=== PATIENT | female | born 1950 | race Caucasian/White ===

== ENCOUNTER → 2017-05-15 | Outpatient (CLI) | payer MEDICARE, OTHER | END | disposition home or self-care (01) | LOC: GMAL 12:49 | PROVIDERS: ATTEND Family Medicine | DX: D51.3 Other dietary vitamin B12 deficiency anemia (principal); R53.82 Chronic fatigue, unspecified; E55.9 Vitamin D deficiency, unspecified ==

== ENCOUNTER → 2017-08-13 | Outpatient (CLI) | payer MEDICARE, OTHER | LOC: GMAL 10:46 | PROVIDERS: ATTEND Family Medicine | DX: D51.3 Other dietary vitamin B12 deficiency anemia (principal) ==

== ENCOUNTER → 2017-08-22 | Outpatient (CLI) | payer MEDICARE, OTHER | LOC: GMAL 11:22 | PROVIDERS: ATTEND Family Medicine | DX: E34.9 Endocrine disorder, unspecified (principal) ==

== ENCOUNTER → 2017-11-25 | Outpatient (CLI) | payer MEDICARE, OTHER | LOC: SL 10:54 | PROVIDERS: ATTEND Family Medicine | DX: G47.33 Obstructive sleep apnea (adult) (pediatric) (principal) ==

== ENCOUNTER → 2018-07-31 | Outpatient (CLI) | payer MEDICARE, OTHER ==
--- NOTE | 2018-07-31 14:03 | CT ---
EXAM DESCRIPTION: Abdomen/Pelvis w/wo Contrast: Computed Tomography. CLINICAL HISTORY: ABD PAIN COMPARISON: None. TECHNIQUE: Spiral-axial scans at 5.0 mm intervals through the abdomen and pelvis before and after 75 mL Optiray 320 nonionic IV contrast. Gastrografin oral contrast. Coronal and sagittal 2.0 mm reconstructions. 2.5 x 5 mm reconstructed helical-axial scans, liver through the pubic symphysis. No adverse reactions. Total Exam DLP 1147.07 mGy - cm. This exam was performed according to our departmental CT dose-optimization program which includes automated exposure control, adjustment of the mA and/or kV according to patient size and/or use of iterative reconstruction technique; to reduce radiation dose to as low as reasonably achievable (ALARA). FINDINGS: Mesentery: In the anterior midline abdomen at the level of the L1-L2 and L3 vertebra, is an irregularly enhancing mass with circumscribed and lobulated margins as well as ill-defined margins. Fatty stranding around the inferior lateral and superior margins. Mass effect on the colon, left kidney, mesentery, small bowel, mesentery vessels. This mass measures 7.8 x 3.4 cm in the transverse plane and craniocaudal axis is 7.4 cm. Associated with the medial border of this mass is a large relatively uniform fat density mass, which is displacing left side abdominal contents through the right of midline superior and anterior. Dimensions are approximately 20.1 x 9.3 cm in the coronal plane and 10.9 cm transverse axis. Fusiform mass on the anterior lateral capsule of the fatty mass with minimal enhancement and measuring 2.5 x 1.6 cm in the axial plane and 2.3 cm in the transverse axis. This mass is abutting the lateral border of the left kidney, effacing the contrast-filled descending colon and also abutting the spleen stomach aorta and proximal sigmoid colon. Calcification possibly in the posterior capsule of the mass at the mid level. Small Bowel: Minimal contrast and fluid with displacement, predominantly of the jejunum, by the solid and fatty mass. No distention or significant air-fluid levels. No significant displacement of the terminal ileum which contains fluid and oral contrast. No obstruction. Terminal Ileum/Cecum: Unremarkable. Contrast in the appendix which is normal caliber with no fatty stranding. Colon: Normal caliber proximal with oral contrast. Effacement of the splenic flexure and proximal descending colon. Some irregularity in the mucosa. Minimal redundancy of the sigmoid colon. No evidence of obstruction. Minimally redundant sigmoid with few diverticula, no complications.. Liver, Stomach, Spleen, Adrenal Glands: Large gastric hiatal hernia. No definite volvulus. No gastric or duodenal obstruction. Distal duodenum shifted to the right of midline. Spleen and other solid organs are negative. Pancreas, Gallbladder, Ducts: Mass effect shifting to the right, by the fatty component. No fluid in the Morison's pouch. Kidneys and Ureters: Partially kidney joining at the isthmus with relatively normal positioning of the right renal component. Left renal hilum directed posteriorly with mass effect from the solid and fatty component. No perirenal fluid hydronephrosis or radiodense stones. Ureters were not not well seen with no delayed images. Pelvic Organs: Vaginal cuff contains minimal air. Mass effect on the urinary bladder but no radiodense stones. Ureters are not well seen. Lung bases and pleura: Atelectasis and pleural parenchymal scarring in the right base. No effusion. Ovaries not well seen.. Aorta: Moderate atherosclerotic calcification but no significant stenosis or aneurysm formation. Spine and Bony Pelvis: T12-L3 levoscoliosis. Spondylosis at multiple levels. No lytic or blastic lesions. Minimal spondylosis distal thoracic spine. Overall bone density is decreased. Minimal arthrosis bilateral hip joints. Abdominal Wall/Back Soft Tissues: Diastases at the umbilicus but no hernia. IMPRESSION: 1. Irregular partially necrotic and partially enhancing soft tissue mass abutting the anterior midline abdominal wall at the L1-L3 levels with greatest dimension almost 8 cm and irregular margins medially, where a 20 x 11 x 9 cm fatty mass occupies most of the right side of the abdomen displacing adjacent organs to the midline and right of midline. Question of the soft tissue component with possible invasion of the wall of the hepatic flexure or proximal ascending colon. Mass effect on the descending colon by the fatty mass. No free fluid. Differential includes liposarcoma or other type of sarcoma or fatty tumor. Metastasis unlikely. Surgical consult recommended. The solid necrotic component would be amenable to image guided tissue sampling . 2. 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 Left kidney is rotated. No hydronephrosis radiodense stones or perinephric fluid. 3. No colon obstruction. Diverticulosis distal colon without complication. No free fluid in the abdomen or pelvis. Moderate levoscoliosis. Large gastric hiatal hernia which could be secondary to mass effect. Electronically signed by: David Fermin MD 07/31/2018 2:01 PM CDT
== END ==
LOC: GMAL 10:19
PROVIDERS: ATTEND Family Medicine
DX: R19.01 Right upper quadrant abdominal swelling, mass and lump (principal); R97.0 Elevated carcinoembryonic antigen [CEA]; Q63.1 Lobulated, fused and horseshoe kidney; K57.30 Diverticulosis of large intestine without perforation or abscess without bleeding; K44.9 Diaphragmatic hernia without obstruction or gangrene; M41.86 Other forms of scoliosis, lumbar region

== ENCOUNTER 2018-12-16 05:04 | Day surgery (SDC) | payer MEDICARE, OTHER ==
[2018-12-16] MEDS ORDERED: TROP 1%/CYCLOPEN 1%/PHENYL 2% DROPS ONE (05:47)
[2018-12-16] MEDS ORDERED: PROPARACAINE 0.5% OPHTH SOL 15 ML BTTL ONE (05:47)
[2018-12-16] MEDS ORDERED: MOXIFLOXACIN HCL (OPHTH) 1 DROP DROPS ONE (05:47)
== END 2018-12-16 07:15 | disposition home or self-care (01) ==
LOC: AMB 05:04
PROVIDERS: ATTEND Ophthalmology
DX: H26.491 Other secondary cataract, right eye (principal); I10 Essential (primary) hypertension; Z79.899 Other long term (current) drug therapy

== ENCOUNTER → 2018-12-26 | Outpatient (CLI) | payer MEDICARE, OTHER ==
--- NOTE | 2018-12-26 15:12 | CT ---
EXAM DESCRIPTION: Chest w/Contrast CLINICAL HISTORY: 68 years Female, MALIGNANT NEOPLASM OF CONNECTIVE AND SOFT TISSUE COMPARISON: CT abdomen pelvis dated 07/31/2018. TECHNIQUE: Contiguous thin section axial images through the chest were obtained after the administration of intravenous contrast. Sagittal and coronal reconstructions were reviewed. FINDINGS: The visualized thyroid gland and supraclavicular region appear normal. No evidence of abnormally enlarged mediastinal, hilar or axillary lymphadenopathy. Trachea is midline and the central tracheobronchial tree is patent. Mild atelectasis is noted in the right middle lobe, lingula and bilateral lower lobes. No evidence of pleural effusions. The heart is normal in size with no pericardial effusion. The visualized aorta is nonaneurysmal with no significant atherosclerosis. The superior vena cava is normal in size and caliber.No significant coronary artery atherosclerosis. The esophagus appears normal throughout its visualized length. Limited evaluation of the upper abdomen demonstrates no gross abnormality. Dextroscoliosis of the thoracic spine with multilevel degenerative disc disease. IMPRESSION: No evidence of metastatic disease within the chest. This exam was performed according to our departmental dose-optimization program, which includes automated exposure control, adjustment of the mA and/or kV according to patient size and/or use of iterative reconstruction technique. Electronically signed by: Kelsey Tse MD 12/26/2018 3:10 PM [employer]
--- NOTE | 2018-12-26 15:15 | CT ---
EXAM DESCRIPTION: Abdomen/Pelvis w/wo Contrast CLINICAL HISTORY: 68 years Female, MALIGNANT NEOPLASM OF CONNECTIVE AND SOFT TISSUE COMPARISON: CT abdomen and pelvis dated 07/31/2018. TECHNIQUE: Contiguous 3 mm axial images were obtained from the lung bases to the level of the proximal femora before and after the administration of intravenous and oral contrast. Sagittal and coronal reconstructions were reviewed. FINDINGS: THORAX: The imaged lower thorax demonstrates no gross abnormality. LIVER: The liver demonstrates normal size and density with no intrahepatic biliary ductal dilatation or focal masses. GALLBLADDER: Grossly unremarkable. PANCREAS: Appears normal with no cystic or solid lesions. SPLEEN: Normal ADRENAL GLANDS: Normal with no nodules or masses. KIDNEYS: Horseshoe kidney is noted. No hydronephrosis or perinephric fluid collections bilaterally. The visualized ureters appear grossly unremarkable. STOMACH: Moderate sized paraesophageal hernia is noted. The stomach is not well-distended limiting detailed evaluation. SMALL BOWEL: The small bowel loops demonstrate variable degrees of distention with no abnormal dilatation or other signs to suggest bowel obstruction. LARGE BOWEL: Changes of partial colonic resection are identified. Few diverticuli are noted throughout the colon, with no acute inflammation. The appendix is not definitely seen. No evidence of free intraperitoneal air or fluid. RETROPERITONEUM: The abdominal aorta is nonaneurysmal with mild atherosclerosis. The inferior vena cava is normal in size and caliber. No abnormally enlarged retroperitoneal lymph nodes are identified. URINARY BLADDER:The urinary bladder is well-distended with no gross abnormality. The uterus is surgically absent. Bilateral adnexa appear normal. ADDITIONAL FINDINGS: Interval surgical resection of the previously identified midline intra-abdominal mass. No local recurrence. BONES: Moderate degenerative changes are identified in the visualized bones.No evidence of osteophytic or osteoblastic lesions. IMPRESSION: Interval surgical resection of the previously identified midline intra-abdominal mass. No local recurrence. No evidence of metastatic disease within the abdomen and pelvis. Moderate-sized paraesophageal hernia. This exam was performed according to our departmental dose-optimization program, which includes automated exposure control, adjustment of the mA and/or kV according to patient size and/or use of iterative reconstruction technique. Electronically signed by: Kelsey Tse MD 12/26/2018 3:14 PM [employer]
== END ==
LOC: LAB.O 08:27
PROVIDERS: ATTEND Internal Medicine Hematology & Oncology
DX: C49.9 Malignant neoplasm of connective and soft tissue, unspecified (principal); K44.9 Diaphragmatic hernia without obstruction or gangrene

== ENCOUNTER 2018-12-30 05:24 | Day surgery (SDC) | payer MEDICARE, OTHER ==
[2018-12-30] MEDS ORDERED: MOXIFLOXACIN HCL (OPHTH) 1 DROP DROPS ONE (05:45)
[2018-12-30] MEDS ORDERED: PROPARACAINE 0.5% OPHTH SOL 15 ML BTTL ONE (05:46)
[2018-12-30] MEDS ORDERED: TROP 1%/CYCLOPEN 1%/PHENYL 2% DROPS ONE ×2 (05:47→05:55)
== END 2018-12-30 07:15 | disposition home or self-care (01) ==
LOC: AMB 05:24
PROVIDERS: ATTEND Ophthalmology
DX: H26.492 Other secondary cataract, left eye (principal); I10 Essential (primary) hypertension; Z79.899 Other long term (current) drug therapy

== ENCOUNTER → 2019-07-04 | Outpatient (CLI) | payer MEDICARE, OTHER ==
--- NOTE | 2019-07-04 16:33 | CT ---
EXAM DESCRIPTION: Chest w/Contrast : Computed Tomography. CLINICAL HISTORY: 69 years Female MALIGNANT NEOPLASM OF CONNECTIVE AND SOFT TISSUE COMPARISON: CT scan abdomen and pelvis with contrast today. CT scan of the chest with contrast December 2018 TECHNIQUE: Spiral-axial scans at 5 x 5 mm intervals through the lungs and thorax with IV contrast. 2.5 x 5 mm lung algorithm axial reconstructions. : Sagittal 2.0 Mm reconstructions. No adverse reactions. Total Exam DLP: 266 mGy-cm. This exam was performed according to our departmental dose-optimization program which includes automated exposure control, adjustment of the mA and/or kV according to patient size and/or use of iterative reconstruction technique; to reduce radiation dose to as low as reasonably achievable (ALARA). Nodule measurements under 10 mm are given as mean value of 3 axes diameters. FINDINGS: Lungs and large airways: 2 mm subpleural nodules lateral left apex. Pleural-parenchymal scarring in the left lower lobe with pleural based large blebs. Small reticular densities medial posterior recess right lower lobe stable. Stable 2 mm subpleural nodules lateral right upper lobe and also similar sized groundglass nodules. Pleural parenchymal scarring right middle lobe. No new nodules or masses. No new infiltrates. Thoracic cage deformity secondary to scoliosis as previously noted. Pleural spaces: Apical pleural thickening and scattered bilateral thickening. No effusion. Mediastinum and Alexandra: Large paraesophageal hiatal hernia stable 10 mm azygous node measured approximately 8 mm on the prior study. Other mediastinal and hilar nodes are stable. Technique is not optimal for evaluating the lymph nodes. Great vessels and Heart: Evaluation limited due to lack of IV contrast. Atherosclerotic calcifications in aorta. Coronary artery calcifications. Venous collaterals after right upper extremity injection. Soft tissues of neck base, axillae, and chest wall: Normal size lymph nodes. Upper abdomen: Please see CT scan abdomen and pelvis on the same visit. Osseous structures: T6-T10 rotatory multiple levels of spondylosis. Dextroscoliosis with compensatory levoscoliosis superior and inferior. No lytic or blastic lesions. IMPRESSION: 1. Azygos node slightly larger since the prior study but other lymph nodes are stable including the axilla. This may be due to measurement or artifact. Continued follow-up as previous. Small subpleural nodules bilaterally are subclinical and stable. Scattered blebs are stable. 2. Stable paraesophageal hernia. Electronically signed by: David Fermin MD 07/04/2019 4:31 PM CDT
--- NOTE | 2019-07-04 17:22 | CT ---
EXAM DESCRIPTION: Abdomen/Pelvis w/wo Contrast: Computed Tomography. CLINICAL HISTORY: MALIGNANT NEOPLASM OF CONNECTIVE TISSUE COMPARISON: None. TECHNIQUE: Spiral-axial scans at 5 x 5 mm intervals through the abdomen and pelvis before and after 75 mL Optiray 320 nonionic IV contrast. No oral contrast. Coronal and sagittal 2.0 mm reconstructions, portal venous phase and delayed phase. 5 mm Delayed helical-axial scans, liver through the pubic symphysis. No adverse reactions. Total Exam DLP 1431 mGy - cm. This exam was performed according to our departmental CT dose-optimization program which includes automated exposure control, adjustment of the mA and/or kV according to patient size and/or use of iterative reconstruction technique; to reduce radiation dose to as low as reasonably achievable (ALARA). FINDINGS: Mesentery: A new mass has developed in the peritoneum of the left upper quadrant of the abdomen with partially circumscribed and indistinct margins. 4.6 cm craniocaudal and 4.2 x 4.6 cm in the axial plane. The mass is abutting the abdominal aorta and the SMA on the left, displacing the posterior splenic artery, splenic vein, and pancreatic tail, abutting the anterior left adrenal gland, anterior upper pole of the left kidney, and abutting the greater curvature of the stomach. 3 masses with similar appearance and heterogeneous contrast enhancement are visualized abutting the superior left lateral abdominal wall and lateral left hemidiaphragm. These are anterior to the inferior half of the spleen, with mass effect on the jejunum. In the axial plane, they measure 3.1 x 2.1 cm, 2.0 x 1.5 cm, and 2.2 x 1.5 cm. Craniocaudal measurements are 1.1 cm, 2.3 cm, and 1.8 cm respectively. The most inferior mass is impressing on the superior and lateral descending colon. Lung bases and pleura: Please see report and images for chest CT scan with IV contrast on this visit. Liver, Stomach, Spleen, Adrenal Glands: Moderate paraesophageal hernia as previously described. Other solid organs are negative. Pancreas, Gallbladder, Ducts: Gallbladder visualized with questionable wall thickening but no inflammatory changes in the fat or fluid. Kidneys and Ureters: Again noted is horseshoe kidney with partial duplication of each kidney bilaterally. Aorta: Tortuous with atherosclerotic calcifications but normal caliber. Small Bowel: Jejunum is slightly distended. No obstruction or significant air-fluid levels. Anastomosis for partial resection left lower quadrant.. Terminal Ileum/Cecum: Again noted is mobile TI and cecum anteriorly just medial and inferior to the gallbladder with normal caliber. Appendix is visualized. No inflammatory changes. Colon: Moderate amount of fecal material in the colon with previous resection and shortening. Diverticula are again seen in the sigmoid colon with 2 anastomoses in the midline at the level of the upper sacrum. The anastomotic area is more distended since the prior study but no free air or fluid. Minimal fatty stranding around the proximal colon just distal to the sacrum. Similar appearance on the prior study. Pelvic Organs: Urinary bladder are into the left of midline. Vaginal cuff is negative. No significant fluid. Spine and Bony Pelvis: Multiple levels of spondylosis with upper lumbar levoscoliosis and compensatory lumbosacral dextroscoliosis. Bilateral hip joint space narrowing stable. No lytic or blastic lesions. Abdominal Wall/Back Soft Tissues: Minimal weakness in the anterior abdominal wall at the umbilical level with anterior bulging of small bowel but not incarcerated hernia. Small inguinal lymph nodes. IMPRESSION: 1. Unfavorable interval change since the prior study with multiple masses now seen in the left upper quadrant. The largest measures 4.6 cm it is abutting the left abdominal aorta and origin of the left SMA, above the left kidney. 3 masses approximately 50% the size of the large mass (3 cm, 2.2 cm and 2.0) cm are abutting the left lateral abdominal wall and lateral inferior left hemidiaphragm, anterior to the inferior half of the spleen. All for masses are most likely metastatic lesions. The most inferior of the 3 smaller masses abutting the lateral abdominal wall would be amenable to percutaneous biopsy if indicated for diagnosis. 2. No bowel obstruction. Constipation the colon in the mid pelvis at site of anastomosis. Stable moderate paraesophageal hernia. Electronically signed by: David Fermin MD 07/04/2019 5:20 PM CDT
== END ==
LOC: CT 09:30
PROVIDERS: ATTEND Internal Medicine Hematology & Oncology
DX: Z01.812 Encounter for preprocedural laboratory examination (principal); C49.9 Malignant neoplasm of connective and soft tissue, unspecified; K44.9 Diaphragmatic hernia without obstruction or gangrene; K59.00 Constipation, unspecified; R59.0 Localized enlarged lymph nodes; Z98.0 Intestinal bypass and anastomosis status

== ENCOUNTER → 2019-10-09 | Outpatient (CLI) | payer MEDICARE, OTHER ==
--- NOTE | 2019-10-09 18:00 | CT ---
EXAM DESCRIPTION: Chest w/Contrast CLINICAL HISTORY: 69 years Female, MALIGNANT NEOPLASM OF CONNECTIVE AND SOFT TISSUE COMPARISON: 07 Jun 2019 TECHNIQUE: Transaxial images were obtained with intravenous contrast media. Sagittal and coronal reconstruction was performed.This exam was performed according to our departmental dose-optimization program, which includes automated exposure control, adjustment of the mA and/or kV according to patient size and/or use of iterative reconstruction technique. FINDINGS: The thyroid is normal in appearance. No pathologic axillary adenopathy is observed. No hilar or mediastinal adenopathy is detected. Some coronary artery calcification is observed. No pleural fluid is seen. No adrenal masses are detected. No parenchymal nodule or mass is detected. A marked right thoracic scoliosis is observed. Tiny subpleural nodule is again are observed and remain unchanged. No infiltrate is seen. IMPRESSION: 1. A marked right thoracic scoliosis is observed. 2. No evidence of metastatic neoplasm is detected. Electronically signed by: Gurmeet Ocampo MD 10/09/2019 5:59 PM CDT
--- NOTE | 2019-10-09 18:08 | CT ---
EXAM DESCRIPTION: Abdomen/Pelvis w/wo Contrast CLINICAL HISTORY: 69 years Female, MALIGNANT NEOPLASM OF CONNECTIVE AND SOFT TISSUE COMPARISON: 04 Jul 2019 TECHNIQUE: Transaxial images were obtained with and without intravenous contrast media and without oral contrast media. Sagittal and coronal reconstruction was performed.This exam was performed according to our departmental dose-optimization program, which includes automated exposure control, adjustment of the mA and/or kV according to patient size and/or use of iterative reconstruction technique. FINDINGS: A marked left lumbar scoliosis is observed. The liver is unremarkable. The spleen is not identified. No biliary ductal dilatation is observed. The gallbladder is imaged is normal. A horseshoe kidney is observed. A hypodense area is observed in the upper pole of the left side of the horseshoe kidney. This may represent a region of prior infarction. No stones are seen. No definite masses are identified. Calcific atherosclerotic changes observed in the abdominal aorta. Previously observed mesenteric masses are no longer identified. Exam reveals evidence of prior bowel surgery in the left lower quadrant. There is also evidence of bowel surgery in the pelvis. The patient is post hysterectomy. Degenerative changes are observed throughout the lumbar spine. IMPRESSION: 1. Marked left lumbar scoliosis. 2. Splenectomy. 3. Previously observed mesenteric masses are no longer identified. 4. A horseshoe kidney is observed. There is a region of low density in the upper pole of the left side of the horseshoe may represent evidence of infarction of the upper pole. 5. There is evidence of prior bowel surgery and hysterectomy. Electronically signed by: Gurmeet Ocampo MD 10/09/2019 6:06 PM CDT
== END ==
LOC: CT 08:57
PROVIDERS: ATTEND Internal Medicine Hematology & Oncology
DX: Z01.812 Encounter for preprocedural laboratory examination (principal); C49.9 Malignant neoplasm of connective and soft tissue, unspecified; Q63.1 Lobulated, fused and horseshoe kidney; M41.9 Scoliosis, unspecified; Z90.710 Acquired absence of both cervix and uterus; Z90.81 Acquired absence of spleen; Z98.890 Other specified postprocedural states

== ENCOUNTER → 2020-01-07 | Outpatient (CLI) | payer MEDICARE, OTHER ==
--- NOTE | 2020-01-07 12:59 | CT ---
EXAMS DESCRIPTION: CT CHEST WITH CONTRAST CT ABDOMEN AND PELVIS WITHOUT AND WITH CONTRAST CLINICAL HISTORY: [facility] COMPARISON: Previous CT chest abdomen and pelvis October 09, 2019, earlier CT chest December 26, 2018 TECHNIQUE: CT of the abdomen and pelvis are performed prior to and during IV bolus administration of 100 mL of Isovue 300. Postcontrast CT imaging of the chest was performed. No oral contrast. FINDINGS: CT CHEST: Tiny micronodules are seen in the subpleural upper lobes which appears similar to previous studies. Without change since earlier exams, findings most consistent with granulomatous disease. It is impossible to say that some of these tiny nodules arch very early pulmonary metastases but continued follow-up is recommended. No lesion greater than a few millimeters is identified. Tiny subpleural granuloma 2 mm (right upper lobe image 20, series 11) is unchanged compared to previous study December 2018. Enlarged ascending aorta is ectatic measuring 4 cm in diameter. On previous study diameter measurement was 4.2 cm. Prominent left ventricular wall thickness. The heart overall does not appear enlarged. Moderate hiatal hernia is present in the lower chest behind the heart. Prominent esophageal wall thickness distally similar to previous. Breast tissue appears symmetrical. Coronal and sagittal reformatted images confirm the findings. S-shaped scoliosis of the thoracolumbar spine. Normal pulmonary arterial enhancement with no evidence of embolic disease. The bony thorax is negative for fracture or bony destructive lesion. Marked scoliosis was also seen on previous studies. CT abdomen Precontrast axial CT images through the abdomen show normal appearance of the liver with no focal lesion. No stones in the gallbladder. Dilated small bowel loops are consistent with obstruction. There is a mass in the left midabdomen consistent with recurrent neoplasm. This measures approximately 8.5 x 5.5 cm. Previous study July 31, 2018 showed a large fatty mass in the left side of the abdomen with soft tissue mass in the anterior midabdomen with displacement of bowel as well as the kidneys. The soft tissue mass at that time measured 8.6 x 4.[address] of the abdomen in October 2019 showed the fatty and soft tissue masses surgically absent with bowel anastomotic staple lines in the left lower quadrant. Horseshoe kidney is noted. No stones in the kidneys or ureters. Large amount of fecal material in the sigmoid colon. No free fluid. After IV contrast, repeat helical scanning through the abdomen shows low density lesion of the left kidney previously diagnosed as an infarction which appears unchanged in size. Normal enhancement of upper abdominal vessels. No focal liver lesion on the postcontrast images. Normal renal cortical enhancement of the right-sided renal moiety and bridging renal parenchyma across the midline. The left lower quadrant mass enhances and appears to be involving bowel loops causing obstruction. On the postcontrast images, the left sided abdominal mass is of soft tissue density with positive enhancement measuring 8.9 x 5.4 cm on the axial images and approximately 8.9 cm in craniocaudal dimension. Prominent vascularity within the small intestinal mesentery. Findings are most consistent with recurrent neoplasm. .CT pelvis Precontrast CT images through the pelvis show near empty urinary bladder. Bowel anastomotic staple lines are seen involving colon and small bowel. The mass in the left side of the abdomen extends into the left false pelvis. Nodular enhancement is seen in the lower pelvis superolateral to the left side of the sigmoid colon (axial image 59, series 3) and this could be additional tumor nodules in the peritoneal space or enhancing prominent vessels. On cluster of enhancing nodules measures 1.2 cm and the other measures 1.1 cm. IMPRESSION: Tiny nodules in the lungs unchanged from previous studies, probably granulomas. 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 Nodular enhancement in the lower pelvis may be additional recurrent tumor nodules. Dilated proximal small bowel loops consistent with small bowel obstruction by tumor. 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 This exam was performed according to our departmental dose-optimization program, which includes automated exposure control, adjustment of the mA and/or kV according to patient size and/or use of iterative reconstruction technique. Electronically signed by: Jake Kevin MD 01/07/2020 12:57 PM [facility]
== END ==
LOC: CT 07:45
PROVIDERS: ATTEND Internal Medicine Hematology & Oncology
DX: C49.9 Malignant neoplasm of connective and soft tissue, unspecified (principal); R91.8 Other nonspecific abnormal finding of lung field; R19.00 Intra-abdominal and pelvic swelling, mass and lump, unspecified site; K56.609 Unspecified intestinal obstruction, unspecified as to partial versus complete obstruction; Q63.1 Lobulated, fused and horseshoe kidney

== ENCOUNTER → 2020-03-08 | Outpatient (CLI) | payer MEDICARE, OTHER | LOC: LAB.NP 17:28 | PROVIDERS: ATTEND Surgery Surgical Oncology | DX: C49.4 Malignant neoplasm of connective and soft tissue of abdomen (principal); E44.0 Moderate protein-calorie malnutrition; K91.2 Postsurgical malabsorption, not elsewhere classified; K56.690 Other partial intestinal obstruction; I95.9 Hypotension, unspecified; I10 Essential (primary) hypertension; M41.9 Scoliosis, unspecified; G89.29 Other chronic pain; Z45.2 Encounter for adjustment and management of vascular access device; Z90.49 Acquired absence of other specified parts of digestive tract; Z90.81 Acquired absence of spleen; Z48.3 Aftercare following surgery for neoplasm ==

== ENCOUNTER → 2020-04-03 | Outpatient (CLI) | payer MEDICARE, OTHER | LOC: LAB.NP 15:48 | PROVIDERS: ATTEND Surgery Surgical Oncology | DX: C49.4 Malignant neoplasm of connective and soft tissue of abdomen (principal); K91.2 Postsurgical malabsorption, not elsewhere classified; E44.0 Moderate protein-calorie malnutrition ==